=== PATIENT | male | born 1990 | race American Indian/Alaskan Native ===

== ENCOUNTER 2018-10-08 12:15 | Emergency (ER) | payer OTHER ==
[2018-10-08 12:25] VITALS: BP 109/52
--- NOTE | 2018-10-08 12:57 | Emergency Department Report ---
ED Extremity Problem HPI - General Chief complaint: Extremity Injury, Lower Stated complaint: L THIGH SWOLLEN Time Seen by Provider: 10/08/18 12:33 Source: patient Mode of arrival: Ambulatory Limitations: No Limitations - History of Present Illness Initial comments: Patient is 28-year-old male with no significant past medical history. Patient presented to the ER complaining of left distal thigh pain and swelling. Patient stated that the swelling started approximately 2 years ago that he did not bother to check it and he was just observing it. Patient stated that he noticed in the last 2-3 weeks the swelling is getting worse and is painful to walk on it. Patient denied any injury. No risk factor for DVT. MD Complaint: extremity pain, extremity swelling -: year(s) (2) - Related Data Previous Rx's Medication Instructions Recorded Last Taken Type Naproxen [Naprosyn] 500 mg PO BID #14 tablet 10/08/18 Unknown Rx Allergies Allergy/AdvReac Type Severity Reaction Status Date / Time No Known Allergies Allergy Unverified 10/08/18 12:22 ED Review of Systems ROS: Stated complaint: L THIGH SWOLLEN Other details as noted in HPI Comment: All other systems reviewed and negative Constitutional: denies: chills, fever Respiratory: denies: cough Cardiovascular: denies: chest pain, palpitations Gastrointestinal: denies: abdominal pain, nausea, vomiting, diarrhea, constipation, hematemesis, melena, hematochezia Musculoskeletal: denies: back pain Neurological: denies: headache ED Past Medical Hx - Social History Smoking Status: Current Every Day Smoker Substance Use Type: None - Medications Home Medications: Home Medications Medication Instructions Recorded Confirmed Last Taken Type Naproxen [Naprosyn] 500 mg PO BID #14 tablet 10/08/18 Unknown Rx ED Physical Exam - General Limitations: No Limitations General appearance: alert, in no apparent distress - Head Head exam: Present: atraumatic, normocephalic, normal inspection - Eye Eye exam: Present: normal appearance - ENT ENT exam: Present: normal exam, normal orophraynx, mucous membranes moist - Neck Neck exam: Present: normal inspection. Absent: tenderness, meningismus - Respiratory Respiratory exam: Present: normal lung sounds bilaterally - Cardiovascular Cardiovascular Exam: Present: regular rate, normal rhythm - GI/Abdominal GI/Abdominal exam: Present: soft. Absent: distended, tenderness, guarding - Extremities Exam Extremities exam: Present: normal inspection, full ROM, normal capillary refill - Back Exam Back exam: Present: normal inspection, full ROM - Neurological Exam Neurological exam: Present: alert, oriented X3, CN II-XII intact, normal gait, reflexes normal - Skin Skin exam: Present: warm, intact, normal color ED Course Vital Signs 10/08/18 12:24 Temperature 97.5 F L Pulse Rate 52 L Respiratory 16 Rate Blood Pressure 109/52 O2 Sat by Pulse 100 Oximetry ED Medical Decision Making - Radiology Data Radiology results: report reviewed Referring Physician: MALIKA NGUYỄN Patient Name: CIERA DEL ANGEL Date of : 1990 Sex: Male Report Date: 2018-10-08 Report Status: [place] [address] XRay Report Signed Patient: CIERA DEL ANGEL MR#: [id number] : 1990 Acct:[id number] Age/Sex: 28 / M ADM Date: 10/08/18 Loc: ED Attending Dr: Ordering Physician: MALIKA NGUYỄN Date of Service: 10/08/18 Procedure(s): XR femur 2+V LT Accession Number(s): [id number] cc: MALIKA NGUYỄN Fluoro Time In Minutes: PROCEDURE: XR FEMUR 2+V LT TECHNIQUE: Left femur, AP and lateral views HISTORY: distal thigh pain and swelling COMPARISONS: None available FINDINGS: Projecting off the distal anterior femoral shaft, there is an exostosis with underlying broadening of the contour of the femur. The exostosis measures 1.8 cm AP x 2 cm transverse x 2.2 cm craniocaudal. Findings are likely related to an osteochondroma. No fracture or joint dislocation is seen. IMPRESSION: Findings are likely related to an osteochondroma projecting off the distal anterior femur. Recommend further evaluation with MRI with and without IV contrast to exclude malignant t ransformation, given history of pain and swelling.. This document is electronically signed by Mirian Whitney MD., Oct 08 2018 01:21:40 PM ET Transcribed By: [facility] Dictated By: MIRIAN WHITNEY M.D. Electronically Authenticated By: MIRIAN WHITNEY M.D. Signed Date/Time: 10/08/18 1323 DD/ 12 TD/TT: 10/08/18 1313 - Medical Decision Making Patient is 28-year-old male with no significant past medical history. Patient presented to the ER complaining of left distal thigh pain and swelling. Patient stated that the swelling started approximately 2 years ago that he did not bother to check it and he was just observing it. Patient stated that he noticed in the last 2-3 weeks the swelling is getting worse and is painful to walk on it. Patient denied any injury. No risk factor for DVT. Patient x-ray of the left femur show possible osteochondroma but malignancy cannot be ruled out. Radiologist recommended MRI with and without contrast. I explained to the patient the need to follow up with orthopedic in the next 2-3 days. I provide him with Dr Shaw contact information. Patient understood the instruction very well and he stated that he will follow up with him. Patient informed that this is could be malignancy in the bone. Critical care attestation.: If time is entered above; I have spent that time in minutes in the direct care of this critically ill patient, excluding procedure time. ED Disposition Clinical Impression: Bone tumor, Left thigh pain Disposition: - TO HOME OR SELFCARE Is pt being admited?: No Condition: Stable Instructions: Lumbar Radiculopathy (ED), Arthralgia (ED) Prescriptions: Naproxen [Naprosyn] 500 mg PO BID #14 tablet Referrals: [facility] [Other] - 3-5 Days MILTON SHAW MD [Staff Physician] - 3-5 Days
--- NOTE | 2018-10-08 13:23 | XRay Report ---
PROCEDURE: XR FEMUR 2+V LT TECHNIQUE: Left femur, AP and lateral views HISTORY: distal thigh pain and swelling COMPARISONS: None available FINDINGS: Projecting off the distal anterior femoral shaft, there is an exostosis with underlying broadening of the contour of the femur. The exostosis measures 1.8 cm AP x 2 cm transverse x 2.2 cm craniocaudal. Findings are likely related to an osteochondroma. No fracture or joint dislocation is seen. IMPRESSION: Findings are likely related to an osteochondroma projecting off the distal anterior femur. Recommend further evaluation with MRI with and without IV contrast to exclude malignant transformation, given h istory of pain and swelling.. This document is electronically signed by Mirian Whitney MD., Oct 08 2018 01:21:40 PM ET
== END 2018-10-08 14:42 | disposition home or self-care (01) ==
LOC: ED 12:15
DX: M79.652 Pain in left thigh (principal); M79.89 Other specified soft tissue disorders; D49.2 Neoplasm of unspecified behavior of bone, soft tissue, and skin; F17.200 Nicotine dependence, unspecified, uncomplicated

== ENCOUNTER 2021-12-06 11:26 | Emergency (ER) | payer SELFPAY ==
[2021-12-06 12:11] VITALS: BP 112/65
--- NOTE | 2021-12-06 13:31 | Emergency Department Report ---
ED Male HPI - General Chief complaint: Urogenital-Male Stated complaint: POSS STD Time Seen by Provider: 12/06/21 12:14 Source: patient Mode of arrival: Ambulatory Limitations: No Limitations - History of Present Illness Initial comments: 31-year-old male reports of unprotected sex multiple times with female infection may have developed a little penile discharge or leakiness as a cause of from an STD. States that the female told him that she did not have an STD but is did not feel that it is accurate reports no testicular pain no no abdominal pain, no flank pain, no fever, chills, sweats MD Complaint: penile discharge -: Gradual Location: penis Severity: mild Quality: burning, dull Consistency: constant denies: urinary retention, blood in urine, nausea/vomiting, incontinence - Related Data Previous Rx's Medication Instructions Recorded Last Taken Type Naproxen [Naprosyn] 500 mg PO BID #14 tablet 10/08/18 Unknown Rx Azithromycin [Zithromax TAB] 1,000 mg PO ONCE #2 tablet 12/06/21 Unknown Rx ceFIXime [Cefixime] 400 mg PO ONCE #1 capsule 12/06/21 Unknown Rx metroNIDAZOLE [Flagyl] 2,000 mg PO ONCE #4 tablet 12/06/21 Unknown Rx Allergies Allergy/AdvReac Type Severity Reaction Status Date / Time No Known Allergies Allergy Unverified 10/08/18 12:22 ED Review of Systems ROS: Stated complaint: POSS STD Other details as noted in HPI Comment: All other systems reviewed and negative ED Past Medical Hx - Past Medical History Previous Medical History?: No - Surgical History Past Surgical History?: No - Social History Smoking Status: Current Every Day Smoker Substance Use Type: None - Medications Home Medications: Home Medications Medication Instructions Recorded Confirmed Last Taken Type Naproxen [Naprosyn] 500 mg PO BID #14 tablet 10/08/18 Unknown Rx Azithromycin [Zithromax TAB] 1,000 mg PO ONCE #2 tablet 12/06/21 Unknown Rx ceFIXime [Cefixime] 400 mg PO ONCE #1 capsule 12/06/21 Unknown Rx metroNIDAZOLE [Flagyl] 2,000 mg PO ONCE #4 tablet 12/06/21 Unknown Rx ED Physical Exam - General Limitations: No Limitations General appearance: alert, in no apparent distress - Head Head exam: Present: atraumatic, normocephalic - Eye Eye exam: Present: normal appearance, PERRL, EOMI Pupils: Present: normal accommodation - ENT ENT exam: Present: mucous membranes moist - Neck Neck exam: Present: normal inspection - Respiratory Respiratory exam: Present: normal lung sounds bilaterally. Absent: respiratory distress - Cardiovascular Cardiovascular Exam: Present: regular rate, normal rhythm. Absent: systolic murmur, diastolic murmur, rubs, gallop - GI/Abdominal GI/Abdominal exam: Present: soft, normal bowel sounds - Rectal Rectal exam: Present: deferred - Extremities Exam Extremities exam: Present: normal inspection, full ROM, normal capillary refill - Back Exam Back exam: Present: normal inspection. Absent: CVA tenderness (R), CVA tenderness (L), paraspinal tenderness - Neurological Exam Neurological exam: Present: alert, oriented X3, CN II-XII intact, normal gait - Psychiatric Psychiatric exam: Present: normal affect, normal mood. Absent: anxious, flat affect - Skin Skin exam: Present: warm, dry, intact, normal color. Absent: rash, cyanosis, diaphoretic, urticaria ED Course Vital Signs 12/06/21 12:06 Temperature 97.7 F Pulse Rate 58 L Respiratory 16 Rate Blood Pressure 112/65 [Left] O2 Sat by Pulse 100 Oximetry Critical care attestation.: If time is entered above; I have spent that time in minutes in the direct care of this critically ill patient, excluding procedure time. ED Disposition Clinical Impression: Possible exposure to STD Disposition: 01 HOME / SELF CARE / HOMELESS Is pt being admited?: No Does the pt Need Aspirin: No Condition: Stable Prescriptions: ceFIXime [Cefixime] 400 mg PO ONCE #1 capsule metroNIDAZOLE [Flagyl] 2,000 mg PO ONCE #4 tablet Azithromycin [Zithromax TAB] 1,000 mg PO ONCE #2 tablet Referrals: [facility] [Provider Group] - 3-5 Days
== END 2021-12-06 13:48 | disposition home or self-care (01) ==
LOC: ED 11:26
DX: Z20.2 Contact with and (suspected) exposure to infections with a predominantly sexual mode of transmission (principal); F17.200 Nicotine dependence, unspecified, uncomplicated; Z79.899 Other long term (current) drug therapy
CPT/HCPCS: 99282